=== PATIENT | male | born 1950 ===

== ENCOUNTER 2021-07-09 07:17 | Day surgery (SDC) | payer OTHER ==
[~2021-07-09 07:17] MED LIST: ATORVASTATIN CA20 MG PO; COZAAR50 MG PO
== END 2021-07-09 19:00 | disposition home or self-care (01) ==
LOC: CIR.AMB 07:17
PROVIDERS: ATTEND Colon & Rectal Surgery
DX: K64.4 Residual hemorrhoidal skin tags (principal); K64.8 Other hemorrhoids; Z20.822 Contact with and (suspected) exposure to COVID-19